=== PATIENT | female | born 1980 | race African-American/Black ===

== ENCOUNTER 2016-10-11 16:06 | Emergency (ER) | payer OTHER ==
[2016-10-11 16:18] VITALS: PULSE 92; TEMP 98.3; BMI 33.3
[2016-10-11] MEDS ORDERED: AMOX TR/POT CLAV 875MG/125MG TABLETS (FP) PO ONE (17:01)
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
[2016-10-11] MEDS ORDERED: AMOX TR/POT CLAV 875MG/125MG TABLETS (FP) ONE (17:32)
[2016-10-11 17:42] VITALS: BP 140/102
== END 2016-10-11 17:41 | disposition home or self-care (01) ==
LOC: FER 16:06
DX: S41.152A Open bite of left upper arm, initial encounter (principal); W50.3XXA Accidental bite by another person, initial encounter; Y93.F9 Activity, other caregiving; Y92.118 Other place in children's home and orphanage as the place of occurrence of the external cause; Y99.0 Civilian activity done for income or pay
CPT/HCPCS: 99282-25